=== PATIENT | female | born 1985 | race Caucasian/White ===

== ENCOUNTER 2016-10-15 20:51 | Emergency (ER) | payer OTHER ==
[2016-10-15 21:12] VITALS: BP 154/82
--- NOTE | 2016-10-15 22:13 | UC ---
Palpitation/Dysrhythmia HP - HPI Summary HPI Summary: 31 yo female with about a 40 minute episode of palpitations Started with a skipped beat then became rapid no cp or sob onset at rest one soda today has had recent 15 lb wt loss dieting - History of Current Complaint Chief Complaint: UCGeneralIllness Stated Complaint: HEART FLUTTERY Time Seen by Provider: 10/15/16 21:57 Hx Obtained From: Patient Hx Last Menstrual Period: 10/15/16 Onset/Duration: Sudden Onset, Lasting Minutes Timing: Constant Severity Initially: Moderate Severity Currently: None Pain Intensity: 2 Pain Scale Used: 0-10 Numeric Character: Fast, Irregular - ?, Pounding Aggravating Factor(s): Nothing Alleviating Factor(s): Nothing Associated Signs & Symptoms: Positive: Negative - Allergy/Home Medications Allergies/Adverse Reactions: Allergies Allergy/AdvReac Type Severity Reaction Status Date / Time No Known Allergies Allergy Verified 10/15/16 21:12 Home Medications: Home Medications Cholecalciferol TAB* [Vitamin D TAB*] 1,000 unit PO DAILY 10/15/16 [History Confirmed 10/15/16] PMH/Surg Hx/FS Hx/Imm Hx Previously Healthy: Yes - Surgical History Surgical History: None - Family History Known Family History: Positive: Hypertension, Diabetes - Social History Alcohol Use: None Substance Use Type: None Smoking Status (MU): Never Smoked Tobacco Review of Systems Constitutional: Negative Skin: Negative Eyes: Negative ENT: Negative Respiratory: Negative Cardiovascular: Palpitations Gastrointestinal: Negative Genitourinary: Negative Motor: Negative Neurovascular: Negative Musculoskeletal: Negative Neurological: Negative Psychological: Negative All Other Systems Reviewed And Are Negative: Yes Physical Exam Triage Information Reviewed: Yes Appearance: Well-Appearing, No Pain Distress, Well-Nourished Vital Signs: Initial Vital Signs Temp 98.8 F 10/15/16 21:07 Pulse 98 10/15/16 21:07 Resp 17 10/15/16 21:07 BP 154/82 10/15/16 21:07 Pulse Ox 100 10/15/16 21:07 Eyes: Positive: Conjunctiva Clear ENT: Positive: Hearing grossly normal, Pharynx normal, TMs normal. Negative: Nasal congestion, Tonsillar exudate, Trismus, Muffled/hoarse voice Neck: Positive: Supple, Nontender, No Lymphadenopathy, Other: - no thyromegaly Respiratory: Positive: Lungs clear, Normal breath sounds, No respiratory distress, No accessory muscle use Cardiovascular: Positive: RRR, No Murmur Abdomen Description: Positive: Nontender, No Organomegaly, Soft. Negative: Bruit, CVA Tenderness (R), CVA Tenderness (L) Musculoskeletal: Positive: ROM Intact, No Edema Neurological Exam: Normal Neurological: Positive: Alert Psychological Exam: Normal Skin Exam: Normal Diagnostics - EKG Cardiac Rate: NL Cardiac Rhythm: Sinus: Normal Ectopy: None ST Segment: Normal Palpitations Course/Dx - Differential Dx/Diagnosis Provider Diagnoses: palpitations Discharge - Discharge Plan Condition: Stable Disposition: HOME Patient Education Materials: Palpitations (ED) Referrals: No Primary Care Phys,NOPCP [Primary Care Provider] - Additional Instructions: you need to find a local physician blood work is pending you may need further investigation for this (24 hour Holter monitor) Recheck if symptoms recur Your BP is a little higher than we like to see and needs following
[2016-10-16 10:37] LABS: Hematocrit 41 % (35-47); Hemoglobin 13.8 g/dl (12.0-16.0); Mean Corpuscular HGB Conc 34 g/dl (31-36); Mean Corpuscular Hemoglobin 29 pg (27-31); Mean Corpuscular Volume 87 fL (80-97); Mean Platelet Volume 9 um3 (7.4-10.4); Red Blood Count 4.72 10^6/ul (4.0-5.4); Red Cell Distribution Width 13 % (10.5-15); White Blood Count 11.8 10^3/ul (3.5-10.8)
[2016-10-16 10:48] LABS: Albumin 4.4 g/dL (3.2-5.2); BUN/Creatinine Ratio 16.5 (8-20); Calcium 9.3 mg/dL (8.6-10.3); EGFR African American 99.7 (>60); EGFR Non-African American 77.5 (>60); Globulin 2.6 g/dL (2-4); Potassium 3.9 mmol/L (3.5-5.0); Total Bilirubin 0.6 mg/dL (0.2-1.0)
[2016-10-16 11:13] LABS: TSH (Thyroid Stimulating Horm) 3.89 mcIU/mL (0.34-5.60)
== END 2016-10-15 22:32 | disposition home or self-care (01) ==
LOC: UCCORT 20:51
DX: R00.2 Palpitations (principal)
CPT/HCPCS: 36415; 80053; 84443; 85025; 99201; G0463

== ENCOUNTER 2017-09-16 15:40 | Emergency (ER) | payer BC, OTHER ==
[2017-09-16 16:05] VITALS: BP 129/83
[2017-09-16] MEDS ORDERED: Tetan/Diph/Pertus SYR(Tdap)* 0.5 ML SYR(BOOSTRIX) use SYR IM ONE (16:22)
--- NOTE | 2017-09-16 16:27 | UC ---
Skin Complaint HPI - HPI Summary HPI Summary: Pt c/o of stepping on nail about1 hour ago. Pt is not UTD with tetanus. - History of Current Complaint Chief Complaint: UCLowerExtremity Time Seen by Provider: 09/16/17 16:16 Stated Complaint: RT FOOT INJURY Hx Obtained From: Patient Hx Last Menstrual Period: 08/27/17 ?: No Onset/Duration: Sudden Onset Skin Exposure Onset/Duration: Hours Ago Timing: Constant Onset Severity: Mild Current Severity: None Pain Intensity: 0 Location: Discrete - right plantar aspect of distal foot between great toe and second toe - Allergy/Home Medications Allergies/Adverse Reactions: Allergies Allergy/AdvReac Type Severity Reaction Status Date / Time No Known Allergies Allergy Verified 09/16/17 16:05 Review of Systems Constitutional: Negative Skin: Other - puncture wound Eyes: Negative ENT: Negative Respiratory: Negative Cardiovascular: Negative Gastrointestinal: Negative Genitourinary: Negative Motor: Negative Neurovascular: Negative Musculoskeletal: Negative Neurological: Negative Psychological: Negative Is Patient Immunocompromised?: No All Other Systems Reviewed And Are Negative: Yes PMH/Surg Hx/FS Hx/Imm Hx Previously Healthy: Yes - Surgical History Surgical History: None - Family History Known Family History: Positive: Hypertension, Diabetes - Social History Occupation: Employed Full-time Lives: With Family Alcohol Use: None Substance Use Type: None Smoking Status (MU): Never Smoked Tobacco Have You Smoked in the Last Year: No - Immunization History Most Recent Tetanus Shot: @ 9 years Physical Exam Triage Information Reviewed: Yes Appearance: Well-Appearing Vital Signs: Initial Vital Signs Temp 100 F 09/16/17 16:00 Pulse 78 09/16/17 16:00 Resp 18 09/16/17 16:00 BP 129/83 09/16/17 16:00 Pulse Ox 100 09/16/17 16:00 Vital Signs Reviewed: Yes Eye Exam: Normal ENT: Positive: Hearing grossly normal Dental Exam: Normal Respiratory: Positive: No respiratory distress Musculoskeletal Exam: Normal Neurological Exam: Normal Psychological Exam: Normal Skin Exam: Normal - tiny puncture wound right palntar aspect foot, between great toe and second toe Course/Dx - Differential Diagnoses - Skin Complaint Differential Diagnoses: Other - puncture wound - Diagnoses Provider Diagnoses: puncture wound. tetanus out of date Discharge - Sign-Out/Discharge Documenting (check all that apply): Discharge/Admit/Transfer - Discharge Plan Condition: Stable Disposition: HOME Patient Education Materials: Puncture Wound (ED) Referrals: No Primary Care Phys,NOPCP [Primary Care Provider] - [facility] [place] [facility] [Outside] - Billing Disposition and Condition Condition: STABLE Disposition: HOME
== END 2017-09-16 16:33 | disposition home or self-care (01) ==
LOC: UCCORT 15:40
DX: S91.331A Puncture wound without foreign body, right foot, initial encounter (principal); W22.8XXA Striking against or struck by other objects, initial encounter; Y93.9 Activity, unspecified; Y92.9 Unspecified place or not applicable
CPT/HCPCS: 90471; 90715; 99211; G0463